=== PATIENT | male | born 1945 | race Caucasian/White ===

== ENCOUNTER 2017-02-02 12:41 | Emergency (ER) | payer OTHER ==
[~2017-02-02] VITALS: Ht 177.8 cm; Wt 119.8 kg
[2017-02-02 12:49] VITALS: TEMP 36.5; Ht 177.8 cm; Wt 119.8 kg
[2017-02-02 12:56] VITALS: O2SAT 95
[2017-02-02] MEDS ORDERED: ONDANSETRON INJ 2 MG/ML 2 ML VIAL IV STA (13:07)
[2017-02-02] MEDS ORDERED: SODIUM CHLORIDE 0.9% 500ML 500 ML IV STA (13:24)
--- NOTE | 2017-02-02 13:27 | DIAGNOSTIC IMAGING REPORT ---
CHEST ONE VIEW PORTABLE CLINICAL HISTORY: Weakness COMPARISON STUDY: No previous studies for comparison. FINDINGS: The cardiac and mediastinal contours are normal. There is no evidence of focal pulmonary consolidation. There is no evidence of failure. No pleural effusions are visualized.[ There is a linear band of subsegmental atelectasis/scar at the left lung base IMPRESSION: No active disease in the chest. Electronically signed by: Brent Miramontes M.D. 02/02/2017 1:26 PM Dictated Date/Time: 02/02/2017 1:26 PM
--- NOTE | 2017-02-02 13:30 | EMERGENCY ROOM VISIT NOTE ---
History Report prepared by Phuong: Agueda Zamora Under the Supervision of: Dr. Mario Moeller M.D. First contact with patient: 12:58 Chief Complaint: CHEST PAIN Stated Complaint: CHEST PAIN Nursing Triage Summary: pt c/o chest pain started sunday. reproducable though touch. denies any sob, n/v. pt reports feeling weak and intermittent tingling in fingers. pt has hx of htn did not take bp med today. describes pain as "discomfort" in mid chest area. denies any past cardiac hx. History of Present Illness The patient is a 71 year old male who presents to the Emergency Room with complaints of worsening left-sided chest pain for the past 4 days. He thought it was musculoskeletal because he had worsening pain with pressing on his chest. He also reports increased pain with twisting. He denies any pain with breathing. The patient was using a back pack leaf blower before his pain started and he thinks this is what caused his chest pain. Today the patient was working outside at his cabin. He was lifting 50lb bags of corn and exerting himself. He suddenly felt weak and broke into a cold sweat. He continued to have left-sided chest pain. The patient came inside to rest and called EMS. When EMS arrived the patient's blood pressure was elevated. He states that this improved en route to the ED. The patient rates his current pain as a 2/10 in severity. notes that the patient did not have much of an appetite today and ate very little breakfast. Source of History: patient, spouse/significant other Onset: 4 days ago Position: chest (left) Symptom Intensity: 2/10 Timing: worsening Modifying Factors (Worsening): other (pressing/twisting) Associated Symptoms: + diaphoresis, + weakness Review of Systems See HPI for pertinent positives & negatives. A total of 10 systems reviewed and were otherwise negative. Past Medical & Surgical Medical Problems: (1) Hypertension Family History Heart disease Social History Smoking Status: Never Smoker Marital Status: Housing Status: lives with significant other Occupation Status: retired Current/Historical Medications Scheduled Alfuzosin Hcl (Alfuzosin Hcl Er), 1 TAB PO DAILY Aspirin (Aspirin Ec), 81 MG PO DAILY Coenzyme Q10 (Ubidecarenone) (Co Q-10), 1 CAP PO DAILY Fish Oil ([place]-3), 1 CAP PO DAILY Losartan Potassium (Cozaar), 50 MG PO DAILY Multiple Vitamins W/ Minerals (Vision Formula/Lutein), 1 TAB PO DAILY Multivitamins/Minerals (Mvi With Minerals), 1 TAB PO DAILY Rosuvastatin Calcium (Crestor), 20 MG PO DAILY Vitamin E (Vitamin E 400 Iu), 400 INTER.UNIT PO DAILY Allergies Coded Allergies: No Known Allergies (Unverified , 02/02/17) Physical Exam Vital Signs Date Time Temp Pulse Resp B/P (MAP) Pulse Ox O2 Delivery O2 Flow Rate FiO2 02/02/17 14:36 82 18 153/88 97 02/02/17 13:25 80 156/87 86 132/94 92 154/98 02/02/17 12:58 85 02/02/17 12:56 95 Room Air 02/02/17 12:49 36.5 79 20 178/99 95 Room Air Physical Exam GENERAL: Patient is a healthy-appearing well-nourished 71 year old male. HEAD: Normocephalic atraumatic EYES: Ocular movements intact pupils equal and react to light OROPHARYNX mucous membranes are moist no exudates present no erythema or edema present NECK: Supple no nuchal rigidity CHEST: Good equal expansion, tender to the left 6th rib. LUNGS: Clear and equal to auscultation CARDIAC: Normal S1 and S2 ABDOMEN: Soft nontender no guarding BACK: No CVA tenderness EXTREMITIES: No pain upon palpation normal muscle strength in all groups no clubbing cyanosis or edema NEURO: Patient is following commands and answering questions appropriately. Alert and oriented x3 Cranial Nerves 2-12 grossly intact Medical Decision & Procedures ER Provider Diagnostic Interpretation: Radiology results as stated below per my review and radiologist interpretation: CHEST ONE VIEW PORTABLE CLINICAL HISTORY: Weakness COMPARISON STUDY: No previous studies for comparison. FINDINGS: The cardiac and mediastinal contours are normal. There is no evidence of focal pulmonary consolidation. There is no evidence of failure. No pleural effusions are visualized.[ There is a linear band of subsegmental atelectasis/scar at the left lung base IMPRESSION: No active disease in the chest. Electronically signed by: Brent Miramontes M.D. 02/02/2017 1:26 PM Dictated Date/Time: 02/02/2017 1:26 PM Laboratory Results 02/02/17 13:35 Red Blood Count 4.66, Mean Corpuscular Volume 94.2, Mean Corpuscular Hemoglobin 32.8, Mean Corpuscular Hemoglobin Concent 34.9, Mean Platelet Volume 10.3, Neutrophils (%) (Auto) 76.0, Lymphocytes (%) (Auto) 14.5, Monocytes (%) (Auto) 8.2, Eosinophils (%) (Auto) 0.8, Basophils (%) (Auto) 0.3, Neutrophils # (Auto) 4.51, Lymphocytes # (Auto) 0.86, Monocytes # (Auto) 0.49, Eosinophils # (Auto) 0.05, Basophils # (Auto) 0.02 02/02/17 13:35 Test 02/02/17 13:30 02/02/17 13:31 02/02/17 13:35 02/02/17 13:50 Influenza Type A (RT-PCR) Neg for Influ A (NEG) Influenza Type A Antigen Neg for Influ A (NEG) Influenza Type B Antigen Neg for Influ B (NEG) Influenza Type B (RT-PCR) Neg for Influ B (NEG) Bedside Glucose 104 mg/dl (70-99) White Blood Count 5.94 K/uL (4.8-10.8) Red Blood Count 4.66 M/uL (4.7-6.1) Hemoglobin 15.3 g/dL (14.0-18.0) Hematocrit 43.9 % (42-52) Mean Corpuscular Volume 94.2 fL (80-100) Mean Corpuscular Hemoglobin 32.8 pg (25-34) Mean Corpuscular Hemoglobin Concent 34.9 g/dl (32-36) Platelet Count 182 K/uL (130-400) Mean Platelet Volume 10.3 fL (7.4-10.4) Neutrophils (%) (Auto) 76.0 % Lymphocytes (%) (Auto) 14.5 % Monocytes (%) (Auto) 8.2 % Eosinophils (%) (Auto) 0.8 % Basophils (%) (Auto) 0.3 % Neutrophils # (Auto) 4.51 K/uL (1.4-6.5) Lymphocytes # (Auto) 0.86 K/uL (1.2-3.4) Monocytes # (Auto) 0.49 K/uL (0.11-0.59) Eosinophils # (Auto) 0.05 K/uL (0-0.5) Basophils # (Auto) 0.02 K/uL (0-0.2) RDW Standard Deviation 45.4 fL (36.4-46.3) RDW Coefficient of Variation 13.2 % (11.5-14.5) Immature Granulocyte % (Auto) 0.2 % Immature Granulocyte # (Auto) 0.01 K/uL (0.00-0.02) Anion Gap 6.0 mmol/L (3-11) Est Creatinine Clear Calc Drug Dose 113.1 ml/min Estimated GFR () 105.6 Estimated GFR (Non- 91.1 BUN/Creatinine Ratio 23.1 (10-20) Calcium Level 9.0 mg/dl (8.5-10.1) Total Bilirubin 0.5 mg/dl (0.2-1) Direct Bilirubin 0.1 mg/dl (0-0.2) Aspartate Amino Transf (AST/SGOT) 22 U/L (15-37) Alanine Aminotransferase (ALT/SGPT) 28 U/L (12-78) Alkaline Phosphatase 86 U/L (45-117) Total Creatine Kinase 197 U/L (39-308) Creatine Kinase MB 4.1 ng/ml (0.5-3.6) Creatine Kinase MB Ratio 2.1 (0-3.0) Troponin I < 0.015 ng/ml (0-0.045) Total Protein 6.9 gm/dl (6.4-8.2) Albumin 3.7 gm/dl (3.4-5.0) Thyroid Stimulating Hormone (TSH) 1.560 uIu/ml (0.300-4.500) Urine Color YELLOW Urine Appearance CLEAR (CLEAR) Urine pH 7.5 (4.5-7.5) Urine Specific [place] 1.023 (1.000-1.030) Urine Protein NEG (NEG) Urine Glucose (UA) NEG (NEG) Urine Ketones NEG (NEG) Urine Occult Blood NEG (NEG) Urine Nitrite NEG (NEG) Urine Bilirubin NEG (NEG) Urine Urobilinogen NEG (NEG) Urine Leukocyte Esterase NEG (NEG) Labs reviewed by ED physician. Medications Administered Medications (Trade) Dose Ordered Sig/Marcus Route Start Time Stop Time Status Last Admin Dose Admin Ondansetron HCl (Zofran Inj) 4 mg NOW STAT IV 02/02/17 13:07 02/02/17 13:10 DC 02/02/17 13:46 4 MG Sodium Chloride 500 ml @ 999 mls/hr Q31M STAT IV 02/02/17 13:24 02/02/17 13:54 DC 02/02/17 13:47 999 MLS/HR Losartan Potassium (coZAAR TAB) 50 mg NOW STAT PO 02/02/17 14:18 02/02/17 14:20 DC 02/02/17 14:33 50 MG ECG Indication: chest pain Rate (beats per minute): 85 Rhythm: normal sinus Findings: no acute ischemic change, no ectopy ED Course 1258: Past medical records reviewed. The patient was evaluated in room A11B. A complete history and physical examination was performed. 1307: Zofran 4 mg IV 1324: NSS 500 ml @ 999 mls/hr IV Medical Decision Differential diagnosis: Etiologies such as cardiac ischemia, aortic dissection, pulmonary embolism, pneumonia, pneumothorax, musculoskeletal, infections, pericarditis, myocarditis , esophageal rupture, gastrointestinal, as well as others were entertained. This is a 71-year-old male that presents to the emergency department complaining of reproducible chest pain to the mid sternum. The patient reports the pain is worsened with movement of his arms or twisting a certain way. He reports he was using a leaf blower and that he has been having pain in that area since. His EKG does not show any acute evidence of SC. As the pain is been ongoing for the past 4 days I would expect his CK-MB and troponin to be elevated if this were related to his heart. As such they are not. I also believe he had a syncopal episode today most likely related to the fact that he was exerting himself and had not eaten. The patient was given a fluid bolus as well as Zofran. I believe he as well as to be discharged home for follow-up this primary care physician. Patient was in agreement with the treatment plan. Medication Reconcilliation Current Medication List: was personally reviewed by me Blood Pressure Screening Patient's blood pressure: Elevated blood pressure Blood pressure disposition: Referred to PCP Impression Primary Impression: Chest wall pain Additional Impression: Vasovagal episode Scribe Attestation The scribe's documentation has been prepared under my direction and personally reviewed by me in its entirety. I confirm that the note above accurately reflects all work, treatment, procedures, and medical decision making performed by me. Departure Information Patient Instructions My [facility] Problem Qualifiers
[2017-02-02] MEDS ORDERED: ALFU1TAB2 PO (13:48)
[2017-02-02] MEDS ORDERED: MULT-839 PO (13:48)
[2017-02-02] MEDS ORDERED: ROSU20TA PO (13:48)
[2017-02-02] MEDS ORDERED: MULT-513 PO (13:48)
[2017-02-02] MEDS ORDERED: VITA400C3 PO (13:48)
[2017-02-02] MEDS ORDERED: ASPI81TA28 PO (13:48)
[2017-02-02] MEDS ORDERED: LOSA50TA6 PO (13:48)
[2017-02-02] MEDS ORDERED: OMEG10007 PO (13:48)
[2017-02-02] MEDS ORDERED: COEN75CA PO (13:49)
[2017-02-02 13:56] LABS: BASO % 0.3 %; BASO ABS # 0.02 K/uL (0-0.2); COMPLETE YES; EOS % 0.8 %; HEMATOCRIT 43.9 % (42-52); IG% 0.2 %; LYMPH % 14.5 %; LYMPH ABS # 0.86 K/uL (1.2-3.4); MEAN CELL VOLUME 94.2 fL (80-100); MEAN CORPUSCULAR HEMOGLOBIN 32.8 pg (25-34); MEAN CORPUSCULAR HGB CONC 34.9 g/dl (32-36); MEAN PLATELET VOLUME 10.3 fL (7.4-10.4); MONO % 8.2 %; PLATELET COUNT 182 K/uL (130-400); RED BLOOD COUNT 4.66 M/uL (4.7-6.1); WHITE BLOOD COUNT 5.94 K/uL (4.8-10.8)
[2017-02-02 14:07] LABS: URINE APPEARANCE CLEAR (CLEAR); URINE BILIRUBIN NEG (NEG); URINE COLOR YELLOW; URINE NITRITE NEG (NEG); URINE PH 7.5 (4.5-7.5); URINE SPECIFIC GRAVITY 1.023 (1.000-1.030); UROBILINOGEN NEG (NEG)
[2017-02-02 14:08] LABS: MANUAL MICROSCOPIC REQUIRED? NO; REVIEW REQ? NO
[2017-02-02 14:13] LABS: ALT/SGPT 28 U/L (12-78); BLOOD UREA NITROGEN 19 mg/dl (7-18); BUN/CREATININE RATIO 23.1 (10-20); CARBON DIOXIDE 26 mmol/L (21-32); CHLORIDE 109 mmol/L (98-107); GLUCOSE 114 mg/dl (70-99); POTASSIUM 3.7 mmol/L (3.5-5.1); SODIUM 141 mmol/L (136-145)
[2017-02-02] MEDS ORDERED: LOSARTAN POTASSIUM 50 MG TAB PO STA (14:18)
[2017-02-02 14:24] LABS: ALKALINE PHOSPHATASE 86 U/L (45-117); AST/SGOT 22 U/L (15-37); CKMB/CK RATIO 2.1 (0-3.0)
[2017-02-02 14:36] VITALS: BP 153/88; PULSE 82; O2SAT 97
[2017-02-02 15:47] LABS: INFLUENZA A PCR Neg for Influ A (NEG); INFLUENZA B PCR Neg for Influ B (NEG)
== END 2017-02-02 14:37 | disposition home or self-care (01) ==
LOC: EDBD 12:41 → EDSEX 12:41 → C.EDA 12:44
DX: R07.89 Other chest pain (principal); R55 Syncope and collapse; I10 Essential (primary) hypertension; Z79.82 Long term (current) use of aspirin; Z82.49 Family history of ischemic heart disease and other diseases of the circulatory system